=== PATIENT | male | born 1935 | race African-American/Black ===

== ENCOUNTER 2017-10-07 11:18 | Emergency (ER) | payer MEDICARE ==
[~2017-10-07] VITALS: Ht 175.3 cm; Wt 65.0 kg
[2017-10-07] MEDS ORDERED: UNKNOWN BP MED (11:25)
[2017-10-07] MEDS ORDERED: SODIUM CHLORIDE 0.9% 1,000 ML IV ONE (11:38)
[2017-10-07 11:59] LABS: HEMATOCRIT. 33.9 % (42.0-52.0); HEMOGLOBIN. 11.5 g/dL (14.0-18.0); MEAN CORPUSCULAR HEMOGLOBIN 30.4 pg (28.0-32.0); MEAN CORPUSCULAR VOLUME 89.9 fL (80.0-94.0); MEAN PLATELET VOLUME 7.6 fl (7.4-10.4); PLATELET 280 x1000/uL (130-400); RED BLOOD CELL COUNT 3.76 mill/uL (4.7-6.1)
[2017-10-07 12:05] LABS: INR 1.1; PROTHROMBIN TIME 11.5 sec (9.4-11.6)
[2017-10-07 12:14] LABS: CHLORIDE 94 mEq/L (98-107)
[2017-10-07 12:23] LABS: CARBON DIOXIDE 29 mEq/L (21-32)
[2017-10-07 13:13] LABS: PLATELET ESTIMATE NORMAL
[2017-10-07 13:49] LABS: CLARITY URINE CLEAR (CLEAR); COLOR URINE YELLOW (YELLOW); KETONES URINE TRACE (NEGATIVE); LEUKOCYTE ESTERASE URINE NEGATIVE (NEGATIVE); NITRITE URINE NEGATIVE (NEGATIVE); OCCULT BLOOD URINE TRACE (NEGATIVE); PROTEIN URINE 1+ (NEGATIVE); SPECIFIC GRAVITY URINE 1.014 (1.005-1.030)
[2017-10-07] MEDS ORDERED: CEPHALEXIN 500MG CAPSULE PO ONE (14:45)
[2017-10-07 16:43] VITALS: BP 132/49
== END 2017-10-07 16:45 | disposition home or self-care (01) ==
LOC: ER 12:11
DX: N30.00 Acute cystitis without hematuria (principal); I44.0 Atrioventricular block, first degree; I10 Essential (primary) hypertension
CPT/HCPCS: 36415; 80053; 81001; 85025; 85610; 93005; 96360; 99285; J7030

== ENCOUNTER 2018-09-23 16:17 | Inpatient (IN) | payer MEDICARE ==
[~2018-09-23] VITALS: Ht 167.6 cm; Wt 59.9 kg
[~2018-09-23 16:17] MED LIST: AMLO10TA80 PO; AMPI250V3 PO; ATOR10TA PO; BENA5TAB6 PO; LOV80 SUBCUT
[2018-09-23] MEDS ORDERED: NA PHOS,M-B/NA PHOS,DI-BA ENEMA 118ML PR ONE (16:45)
[2018-09-23] MEDS ORDERED: MAGNESIUM CITRATE 300ML SOLUTION PO ONE (16:45)
[2018-09-23 17:21] LABS: HEMATOCRIT. 32.3 % (42.0-52.0); HEMOGLOBIN. 10.7 g/dL (14.0-18.0); MEAN CORPUSCULAR HEMOGLOBIN 29.5 pg (28.0-32.0); MEAN CORPUSCULAR VOLUME 88.6 fL (80.0-94.0); MEAN PLATELET VOLUME 7.2 fl (7.4-10.4); PLATELET 277 x1000/uL (130-400); RED BLOOD CELL COUNT 3.64 mill/uL (4.7-6.1); RED CELL DISTRIBUTION WIDTH 14.7 % (11.6-14.6)
[2018-09-23 17:24] LABS: CHLORIDE 107 mEq/L (98-107); INR 1.1; PROTHROMBIN TIME 11.4 sec (9.1-11.1)
[2018-09-23 17:36] LABS: PLATELET ESTIMATE NORMAL
[2018-09-23] MEDS ORDERED: HYDRALAZINE 20MG/ML VIAL IV ONE (18:45)
[2018-09-23 19:52] LABS: CLARITY URINE CLEAR (CLEAR); COLOR URINE YELLOW (YELLOW); KETONES URINE NEGATIVE (NEGATIVE); LEUKOCYTE ESTERASE URINE 2+ (NEGATIVE); NITRITE URINE NEGATIVE (NEGATIVE); OCCULT BLOOD URINE 2+ (NEGATIVE); PH URINE 6.5 (4.5-8.0); PROTEIN URINE TRACE (NEGATIVE); SPECIFIC GRAVITY URINE 1.009 (1.005-1.030); UROBILINOGEN URINE 0.2 E.U./dL (0.2-1.0)
[2018-09-24] MEDS ORDERED: DIPHENHYDRAMINE 50MG/ML VIAL IV PRN (01:30)
[2018-09-24] MEDS ORDERED: CLONIDINE 0.1MG TABLET PO PRN (01:30)
[2018-09-24] MEDS ORDERED: ONDANSETRON HCL 4MG/2ML INJ IV PRN (01:30)
[2018-09-24 09:05] VITALS: BP 132/82
[2018-09-24 12:00] VITALS: BP 201/106
[2018-09-24] MEDS: LACTULOSE 20G/30ML UDC PO SCH ×2 (13:50→21:03)
[2018-09-24] MEDS: FINASTERIDE 5MG TABLET PO SCH (13:50)
[2018-09-24] MEDS: ENOXAPARIN 40MG/0.4ML SYR SUBCUT SCH (13:50)
[2018-09-24] MEDS: TAMSULOSIN HCL 0.4MG SR CAPSULE PO SCH (13:50)
[2018-09-24] MEDS: DEXT 5%/0.45% NACL KCL 40MEQ/L 1,000 ML IV SCH (13:57)
[2018-09-24 16:55] VITALS: BP 145/78
[2018-09-24 20:00] VITALS: BP 127/71
[2018-09-25] VITALS: BP 97/56
[2018-09-25 04:00] VITALS: BP 94/55
[2018-09-25] MEDS: DEXT 5%/0.45% NACL KCL 40MEQ/L 1,000 ML IV SCH ×2 (05:07→17:00)
[2018-09-25] MEDS: LACTULOSE 20G/30ML UDC PO SCH ×3 (05:42→21:29)
[2018-09-25 08:00] VITALS: BP 103/61
[2018-09-25] MEDS: ENOXAPARIN 40MG/0.4ML SYR SUBCUT SCH (10:06)
[2018-09-25] MEDS: ACETAMINOPHEN 325MG TABLET PO PRN (10:06)
[2018-09-25] MEDS: TAMSULOSIN HCL 0.4MG SR CAPSULE PO SCH (10:07)
[2018-09-25] MEDS: FINASTERIDE 5MG TABLET PO SCH (10:08)
[2018-09-25 12:00] VITALS: BP 96/54
[2018-09-25 13:36] LABS: HEMATOCRIT. 21.4 % (42.0-52.0); HEMOGLOBIN. 7.1 g/dL (14.0-18.0); MEAN CORPUSCULAR HEMOGLOBIN 29.4 pg (28.0-32.0); MEAN CORPUSCULAR VOLUME 88.5 fL (80.0-94.0); MEAN PLATELET VOLUME 7.2 fl (7.4-10.4); PLATELET 194 x1000/uL (130-400); RED BLOOD CELL COUNT 2.42 mill/uL (4.7-6.1); RED CELL DISTRIBUTION WIDTH 14.1 % (11.6-14.6)
[2018-09-25 13:42] LABS: CHLORIDE 109 mEq/L (98-107)
[2018-09-25] MEDS: POTASSIUM CHLORIDE 20MEQ TABLET SR PO SCH (13:53)
[2018-09-25] MEDS: CEFTRIAXONE 1 G PREMIX 50 ML IV SCH (13:53)
[2018-09-25 15:29] LABS: PLATELET ESTIMATE NORMAL
[2018-09-25 16:00] VITALS: BP 101/55
[2018-09-25 20:00] VITALS: BP 122/67
[2018-09-26] VITALS: BP 119/62
[2018-09-26 04:00] VITALS: BP 122/65
[2018-09-26] MEDS: LACTULOSE 20G/30ML UDC PO SCH ×3 (06:00→21:42)
[2018-09-26 08:00] VITALS: BP 98/57
[2018-09-26] MEDS: TAMSULOSIN HCL 0.4MG SR CAPSULE PO SCH (08:28)
[2018-09-26] MEDS: POTASSIUM CHLORIDE 20MEQ TABLET SR PO SCH (08:28)
[2018-09-26] MEDS: FINASTERIDE 5MG TABLET PO SCH (08:28)
[2018-09-26] MEDS: ENOXAPARIN 40MG/0.4ML SYR SUBCUT SCH (08:29)
[2018-09-26 12:05] LABS: HEMATOCRIT 22.9 % (42.0-52.0); HEMOGLOBIN 7.6 g/dL (14.0-18.0)
[2018-09-26 12:09] LABS: CHLORIDE 107 mEq/L (98-107)
[2018-09-26 12:16] VITALS: BP 107/63
[2018-09-26 12:17] LABS: HEMATOCRIT. 23.1 % (42.0-52.0); HEMOGLOBIN. 7.5 g/dL (14.0-18.0); MEAN CORPUSCULAR HEMOGLOBIN 29.1 pg (28.0-32.0); MEAN CORPUSCULAR VOLUME 89.1 fL (80.0-94.0); MEAN PLATELET VOLUME 7.5 fl (7.4-10.4); PLATELET 196 x1000/uL (130-400); RED BLOOD CELL COUNT 2.59 mill/uL (4.7-6.1); RED CELL DISTRIBUTION WIDTH 14.4 % (11.6-14.6)
[2018-09-26] MEDS: CEFTRIAXONE 1 G PREMIX 50 ML IV SCH (12:27)
[2018-09-26 15:10] LABS: PLATELET ESTIMATE NORMAL
[2018-09-26 20:00] VITALS: BP 95/52
[2018-09-27] VITALS: BP 115/70
[2018-09-27] MEDS: LACTULOSE 20G/30ML UDC PO SCH ×3 (05:35→21:03)
[2018-09-27 08:00] VITALS: BP 105/63
[2018-09-27] MEDS: POTASSIUM CHLORIDE 20MEQ TABLET SR PO SCH (08:22)
[2018-09-27] MEDS: TAMSULOSIN HCL 0.4MG SR CAPSULE PO SCH (08:22)
[2018-09-27] MEDS: ENOXAPARIN 40MG/0.4ML SYR SUBCUT SCH (08:23)
[2018-09-27] MEDS: FINASTERIDE 5MG TABLET PO SCH (08:24)
[2018-09-27 12:00] VITALS: BP 90/53
[2018-09-27] MEDS: CEFTRIAXONE 1 G PREMIX 50 ML IV SCH (14:06)
[2018-09-27 16:00] VITALS: BP 120/73
[2018-09-27 20:00] VITALS: BP 127/71
[2018-09-28] VITALS: BP 128/72
[2018-09-28 04:00] VITALS: BP 148/83
[2018-09-28] MEDS: LACTULOSE 20G/30ML UDC PO SCH (05:34)
[2018-09-28 08:00] VITALS: BP 127/79
[2018-09-28] MEDS: POTASSIUM CHLORIDE 20MEQ TABLET SR PO SCH (09:00)
[2018-09-28] MEDS: TAMSULOSIN HCL 0.4MG SR CAPSULE PO SCH (09:26)
[2018-09-28] MEDS: ENOXAPARIN 40MG/0.4ML SYR SUBCUT SCH (09:26)
[2018-09-28] MEDS: FINASTERIDE 5MG TABLET PO SCH (09:27)
[2018-09-28] MEDS: CEFTRIAXONE 1 G PREMIX 50 ML IV SCH (11:40)
[2018-09-28 12:00] VITALS: BP 104/65
[2018-09-28] MEDS ORDERED: FINA5TAB11 PO (12:04)
[2018-09-28] MEDS ORDERED: TAMS-11 PO (12:04)
[2018-09-28] MEDS ORDERED: LOV40 SUBCUT (12:05)
[2018-09-28] MEDS: ACETAMINOPHEN 325MG TABLET PO PRN (15:58)
[2018-09-28 16:00] VITALS: BP 84/53
[2018-09-28] MEDS: RIVAROXABAN 15 MG TABLET PO SCH (17:40)
[2018-09-28 20:00] VITALS: BP 104/57
[2018-09-28 22:36] LABS: BASOPHILS % 0.8 % (0.0-2.0); EOSINOPHILS % 2.9 % (0.0-5.0); HEMATOCRIT. 23.5 % (42.0-52.0); HEMOGLOBIN. 7.9 g/dL (14.0-18.0); LYMPHOCYTES % 14.3 % (20.0-50.0); MEAN CORPUSCULAR HEMOGLOBIN 29.3 pg (28.0-32.0); MEAN CORPUSCULAR VOLUME 87.5 fL (80.0-94.0); MEAN PLATELET VOLUME 7.1 fl (7.4-10.4); MONOCYTES % 10.7 % (2.0-8.0); NEUTROPHILS % 71.3 % (40.0-76.0); PLATELET 239 x1000/uL (130-400); RED BLOOD CELL COUNT 2.69 mill/uL (4.7-6.1); RED CELL DISTRIBUTION WIDTH 13.9 % (11.6-14.6)
[2018-09-28 22:50] LABS: CHLORIDE 103 mEq/L (98-107)
[2018-09-29] VITALS (8 sets, daily range): BP systolic 79–147; BP diastolic 46–89
[2018-09-29] MEDS: RIVAROXABAN 15 MG TABLET PO SCH ×2 (08:55→17:41)
[2018-09-29] MEDS: FINASTERIDE 5MG TABLET PO SCH (08:55)
[2018-09-29] MEDS: TAMSULOSIN HCL 0.4MG SR CAPSULE PO SCH (08:55)
[2018-09-29] MEDS: ACETAMINOPHEN 325MG TABLET PO PRN (08:56)
[2018-09-29] MEDS ORDERED: MIDODRINE HCL 2.5MG TABLET PO SCH (17:15)
[2018-09-29] MEDS ORDERED: ALBUMIN HUMAN 25GM/100ML (25%) IV SCH (17:15)
[2018-09-29] MEDS ORDERED: SODIUM CHLORIDE 0.9% 500 ML IV ONE (17:15)
[2018-10-20] MEDS ORDERED: RIVAROXABAN 20 MG TABLET PO SCH (21:00)
== END 2018-09-29 22:00 | DRG 725 ==
LOC: ER 16:25 → EDBEDREQ 18:36 → 8WST 18:41 → EDBEDREQ 18:43 → EDBEDREQTM 09-24 06:01 → EDBEDREQSVC 09-24 06:01 → EDBEDREQDT 09-24 06:01 → ENRESERV 09-24 07:22
PROVIDERS: ADMIT Family Medicine; ATTEND Family Medicine
DX: N40.1 Benign prostatic hyperplasia with lower urinary tract symptoms (principal); L89.153 Pressure ulcer of sacral region, stage 3; J69.0 Pneumonitis due to inhalation of food and vomit; N13.8 Other obstructive and reflux uropathy; N13.2 Hydronephrosis with renal and ureteral calculous obstruction; I82.433 Acute embolism and thrombosis of popliteal vein, bilateral; I82.413 Acute embolism and thrombosis of femoral vein, bilateral; Z96.642 Presence of left artificial hip joint; I95.9 Hypotension, unspecified; I10 Essential (primary) hypertension; D63.8 Anemia in other chronic diseases classified elsewhere; B95.2 Enterococcus as the cause of diseases classified elsewhere; Z16.21 Resistance to vancomycin; N32.89 Other specified disorders of bladder; R33.8 Other retention of urine; I15.8 Other secondary hypertension; K59.00 Constipation, unspecified; Z86.73 Personal history of transient ischemic attack (TIA), and cerebral infarction without residual deficits; Z79.2 Long term (current) use of antibiotics; Z79.899 Other long term (current) drug therapy; Z79.01 Long term (current) use of anticoagulants
CPT/HCPCS: 36415; 71045; 74176; 84134; 85014; 85018; 92610; 93970; 96374; 97163; 97530; 99285; C1893; J0360; J0696; J1650; J7040; J7050; P9047